=== PATIENT | female | born 1990 | race Caucasian/White ===

== ENCOUNTER → 2019-03-29 17:39 | Outpatient (CLI) | payer BC, SELFPAY ==
[2019-03-31 16:04] LABS: HPV Reflexed? NOT INDICATED
== END ==
PROVIDERS: Family Provider Family Medicine; PCP Family Medicine; Referring Provider Obstetrics & Gynecology; Visit Provider Obstetrics & Gynecology
DX: Z12.4 Encounter for screening for malignant neoplasm of cervix (principal)
CPT/HCPCS: 87624; 88175; G0145